=== PATIENT | female | born 1955 | race Two or more races ===

== ENCOUNTER 2017-04-08 23:44 | Emergency (ER) | payer OTHER ==
[~2017-04-08] VITALS: Ht 154.9 cm; Wt 60.6 kg
[2017-04-09 00:16] LABS: EOSINOPHIL (%) 2.4 % (0-5); EOSINOPHIL COUNT 0.2 K/uL (0-0.3); HEMATOCRIT 34.8 % (36.0-46.0); IMMATURE GRANULOCYTE (%) 0.2 % (0.0-0.7); INSTRUMENT ABS NEUTROPHIL CT 4.8 K/uL; LYMPHOCYTE COUNT 3.5 K/uL (1.0-2.8); MCH 27.6 PG (29.0-34.0); MCHC 34.5 G/DL (30.0-36.0); MCV 80.2 FL (83-99); MEAN PLAT.VOLUME 9.5 uM^3 (9.5-12.4); MONOCYTE COUNT 0.5 K/uL (0-0.8); NEUTROPHIL (%) 53.1 % (45-76); NEUTROPHIL COUNT 4.8 K/uL (1.8-6.4); PLATELET COUNT 259 K/uL (156-360); RBC DIS.WIDTH-CV 12.4 % (11.8-14.6); RBC DIS.WIDTH-SD 35.7 % (39-53); RED BLOOD COUNT 4.34 M/uL (3.80-5.20)
[2017-04-09 00:29] LABS: CHLORIDE 104 mEq/L (99-109); POTASSIUM 3.7 mEq/L (3.7-5.4); SODIUM 137 mEq/L (136-147)
[2017-04-09 00:31] LABS: GLUCOSE 231 mg/dL (70-99)
[2017-04-09 00:32] LABS: ANION GAP 11 MEQ/L (2-14)
[2017-04-09 00:33] LABS: TOTAL BILIRUBIN 0.5 mg/dL (0.0-1.0)
[2017-04-09 00:35] LABS: ALKALINE PHOSPHATASE 89 IU/L (3-129); GFR ESTIMATE (CALCULATED) > 59 mL/min/
[2017-04-09 00:36] LABS: UREA NITROGEN (BUN) 5 mg/dL (9-23)
[2017-04-09 00:41] LABS: TROP-I INTERPRETATION NEGATIVE; TROPONIN-I < 0.01 ng/mL (0.0-0.30)
[2017-04-09 02:39] LABS: TROP-I INTERPRETATION NEGATIVE; TROPONIN-I < 0.01 ng/mL (0.0-0.30)
[2017-04-09] MEDS ORDERED: ULTRAM50 MG PO (02:45)
[2017-04-09 03:51] VITALS: BP 138/89
== END 2017-04-09 03:52 | disposition home or self-care (01) ==
LOC: EME 23:44
PROVIDERS: Emergency Medicine
DX: S20.212A Contusion of left front wall of thorax, initial encounter (principal); M54.9 Dorsalgia, unspecified; V43.62XA Car passenger injured in collision with other type car in traffic accident, initial encounter; K57.30 Diverticulosis of large intestine without perforation or abscess without bleeding; K44.9 Diaphragmatic hernia without obstruction or gangrene
CPT/HCPCS: 71250; 72125; 72128; 72131; 74176; 80053; 84484; 85025; 93005; 99281; 99285; J7040